=== PATIENT | female | born 1965 | race Caucasian/White ===

== ENCOUNTER 2021-08-18 14:11 | Inpatient (IN) | payer BC, OTHER ==
[~2021-08-18] VITALS: Ht 162.6 cm; Wt 127.3 kg
[2021-08-18 14:38] LABS: BASO # 0.1 K/mm3 (0.0-0.2); BASO % 0.8 % (0.0-2.0); EOS # 0.1 K/mm3 (0.0-0.7); EOS % 1.2 % (0.0-4.0); GRAN % 71.5 % (42.2-75.2); HEMATOCRIT 41.9 % (37.0-47.0); HEMOGLOBIN 14.2 g/dl (12.5-16.0); LYMPH # 1.9 K/mm3 (1.2-3.4); MEAN CELL VOLUME 92 fl (80.0-100.0); MEAN CORPUSCULAR HEMOGLOBIN 31 pg (27-31); MEAN CORPUSCULAR HGB CONC 34 g/dl (33.0-37.0); MEAN PLATELET VOLUME 9.7 fl (7.4-10.4); MONO # 0.7 K/mm3 (0.1-0.6); PLATELET COUNT 361 K/mm3 (130-400); RED BLOOD COUNT 4.58 M/mm3 (4.10-5.30); REDCELL DISTRIBUTION WIDTH-CV 12.5 % (11.5-14.5)
[2021-08-18 14:58] LABS: ALANINE AMINOTRANSFERASE 19 U/L (0-55); ALBUMIN 3.7 gm/dL (3.5-5.0); ALKALINE PHOSPHATASE 99 U/L (40-150); ANION GAP 13 mmol/L (7-16); AST,SGOT 18 U/L (5-34); BILIRUBIN,TOTAL 0.3 mg/dL (0.2-1.2); BLOOD UREA NITROGEN 12 mg/dL (10-20); CALCIUM 9.5 mg/dL (8.4-10.2); CARBON DIOXIDE 21 mmol/L (22-29); CHLORIDE 110 mmol/L (98-107); CREATININE, serum 0.72 mg/dL (0.57-1.11); GLUCOSE 98 mg/dL (70-99); POTASSIUM 3.9 mmol/L (3.5-4.5); SODIUM 144 mmol/L (136-145); TOTAL PROTEIN 7.8 gm/dL (6.2-8.1)
[2021-08-18 15:07] LABS: TROPONIN-I < 0.010 ng/mL (0.00-0.033)
[2021-08-18] MEDS ORDERED: PRILOSEC10 MG PO (16:40)
[2021-08-18 16:53] LABS: PROTHROMBIN TIME 11.2 SECONDS (9.7-12.8)
[2021-08-18 16:56] LABS: PARTIAL THROMBOPLASTIN TIME 36.2 SECONDS (26.0-37.0)
[2021-08-18 17:12] LABS: CHOLESTEROL RISK RATIO 3.4
[2021-08-18 17:15] LABS: HEMOGLOBIN A1C 5.4 %
[2021-08-18 17:32] LABS: THYROID STIMULATING HORMONE 2.35 uIU/mL (0.350-4.940)
[2021-08-18 18:05] VITALS: BP 131/91; PULSE 90; TEMP 98
[2021-08-18 18:16] LABS: PH 7 (5-8); SQUAMOUS EPITHELIAL 0-2 /hpf (0-10); URINE APPEARANCE Clear (CLEAR/HAZY); URINE BACTERIA None Seen /hpf (NONE SEEN); URINE BILIRUBIN Negative (NEGATIVE); URINE BLOOD Negative (NEGATIVE); URINE COLOR Straw (YELLOW); URINE GLUCOSE Negative (NEGATIVE); URINE KETONE Negative (NEGATIVE); URINE LEUKOCYTE ESTERASE Negative (NEGATIVE); URINE NITRATE Negative (NEGATIVE); URINE PROTEIN(semi-quant) Negative (NEGATIVE); URINE RBC 0-2 /hpf (0-2); URINE UROBILINOGEN Negative (NEGATIVE)
[2021-08-18 18:23] LABS: COLLECTION METHOD CLEAN CATCH
--- NOTE | 2021-08-18 19:06 | NUR ---
Patient admitted to room 318 from ED. Report recieved from MIKAL Mckinney. Unable to complete med, pharmacy, and allergie review due to provider being in chart. Onocoming nurse aware. VSS. Patient A&O. Patient stable on feet, but patient does report decreased sensation in right side. Patient c/o of right sided chest pain that radiates to shoulder. JENI Sanchez notified, orders placed and appropriate people contacted to completed. orderes. PRN tylenol given. Patient is currently resting in bed. at the bedside. Patient denies any further pain, discomfort, SOA, or further needs at this time. Call light in reach.
[2021-08-18 19:58] VITALS: BP 106/72; PULSE 96; TEMP 97.9
[2021-08-18 23:33] VITALS: BP 107/62; PULSE 84; TEMP 97.8
[2021-08-19 03:46] VITALS: BP 110/65; PULSE 86; TEMP 97.5
--- NOTE | 2021-08-19 06:15 | NUR ---
ASSESSMENT COMPLETE FOR THIS SHIFT. PT RESTING IN BED NAPPING. PT COMPLAINED OF RIGHT LEG PAIN. HOSPITALIST CALLED. TORADOL ORDERED AND GIVEN. PT FELT PAIN MEDICATION WAS EFFECTIVE. PT DENIED CHEST PAIN, PALPITATIONS, N,V,D, SOB OR DIZZINESS. NEURO'S WNR. PT EXPRESSED NO OTHER NEEDS AT THIS TIME. CALL LIGHT WITHIN REACH.
[2021-08-19 06:34] LABS: HEMATOCRIT 41.1 % (37.0-47.0); HEMOGLOBIN 13.6 g/dl (12.5-16.0); MEAN CELL VOLUME 94 fl (80.0-100.0); MEAN CORPUSCULAR HEMOGLOBIN 31 pg (27-31); MEAN CORPUSCULAR HGB CONC 33 g/dl (33.0-37.0); MEAN PLATELET VOLUME 9.8 fl (7.4-10.4); PLATELET COUNT 331 K/mm3 (130-400); RED BLOOD COUNT 4.38 M/mm3 (4.10-5.30); REDCELL DISTRIBUTION WIDTH-CV 12.4 % (11.5-14.5)
[2021-08-19 06:52] LABS: ALBUMIN 3.4 gm/dL (3.5-5.0); BILIRUBIN,TOTAL 0.6 mg/dL (0.2-1.2); CALCIUM 9.2 mg/dL (8.4-10.2); CREATININE, serum 0.73 mg/dL (0.57-1.11); MAGNESIUM 2.2 mg/dL (1.6-2.6); POTASSIUM 4.3 mmol/L (3.5-4.5); TOTAL PROTEIN 7.2 gm/dL (6.2-8.1)
[2021-08-19 07:16] VITALS: BP 116/73; PULSE 79; TEMP 97.9
[2021-08-19] MEDS ORDERED: METAMUCIL3.4 GM/DOS PO (07:35)
--- NOTE | 2021-08-19 08:20 | NUR ---
Scheduled medications given. Shift assessment preformed. VSS. Patient A&O. Neuro check WNL. Patient does report decreased sensation in right leg and right arm. Normal sensation noted in feet and hands. PRN tylenol given for aching pain rated a 6/10 in right leg. Patient denies any further pain, discomfort, SOA, or further needs at this time. Call light in reach.
--- NOTE | 2021-08-19 10:03 | NUR ---
Initial visit; Patient thanked [employer] Grower for looking in on her and offering God's blessings and to keep her in her prayers.
--- NOTE | 2021-08-19 10:48 | NUR ---
Mill Control Operator met with patient to discuss discharge planning. Patient lives in [place] with her , Joe (ph#[phone]) and sees Dr. Helm for primary care. Patient obtains medications from [facility] in [place] with no difficulties and does not use any DME. Patient is independent with ADLS and plans to return home at time of discharge. PT recommends return home. Patient does not have Advance Directives and is not interested in completing DPOA-[facility] at this time. Discharge Plan: Home
[2021-08-19 11:49] VITALS: BP 131/68; PULSE 73; TEMP 97.8
[2021-08-19] MEDS ORDERED: ASPIRIN 81M81 MG/TA2 PO (11:50)
[2021-08-19] MEDS ORDERED: LIPITOR20 MG PO (11:50)
--- NOTE | 2021-08-19 14:07 | NUR ---
Patient deemed fit for discharge. IV DC'd, catheter intact, no signs of phlebitis. VSS. Patient A&O. Discharge education/instruction given.Patient denies any pain, discomfort, SOA, or furthe needs at this time. Patient ambulated from building escorted by [facility] Staff. transporting home.
== END 2021-08-19 14:12 | disposition home or self-care (01) | DRG 93 ==
LOC: COL.ER 14:11 → MEDICAL 16:56
PROVIDERS: Emergency Medicine; ADMIT Family Medicine
DX: R20.0 Anesthesia of skin (principal); G43.909 Migraine, unspecified, not intractable, without status migrainosus; K21.9 Gastro-esophageal reflux disease without esophagitis; I65.21 Occlusion and stenosis of right carotid artery; K58.9 Irritable bowel syndrome, unspecified; R07.9 Chest pain, unspecified; N63.0 Unspecified lump in unspecified breast; Z88.5 Allergy status to narcotic agent
CPT/HCPCS: 99239; A9575; J1650; J1885; Q9967

== ENCOUNTER 2021-10-27 09:14 | Outpatient (CLI) | payer BC, OTHER ==
[~2021-10-27 09:14] MED LIST: ASPIRIN 81M81 MG/TA2 PO; LIPITOR20 MG PO; METAMUCIL3.4 GM/DOS PO; PRILOSEC10 MG PO
[2021-10-27] MEDS ORDERED: PRINIVIL5 MG PO (09:36)
[2021-10-27] MEDS ORDERED: FOLIC ACID0.8 MG PO (09:37)
[2021-10-27] MEDS ORDERED: vitamin D PO (09:39)
[2021-10-27 09:45] VITALS: BP 105/77; PULSE 102; TEMP 97.7
[2021-10-27 11:57] VITALS: BP 124/80; PULSE 100
[2021-10-27 12:00] VITALS: BP 125/89; PULSE 98
[2021-10-27 12:15] VITALS: BP 112/70; PULSE 87
[2021-10-27 12:30] VITALS: BP 113/68; PULSE 81
[2021-10-27 12:45] VITALS: BP 98/60; PULSE 89
[2021-10-27 12:50] LABS: GLUCOSE,CSF 64 mg/dL (40-70); TOTAL PROTEIN,CSF 48 mg/dL (15-45)
[2021-10-27 12:51] LABS: CSF APPEARANCE CLEAR; CSF COLOR COLORLESS; CSF RBC 0 /mm3 (0-0)
[2021-10-27 13:00] LABS: CSF MONONUCLEAR 100 % (70-100); CSF POLYMORPHONUCLEAR 0 % (0-6)
--- NOTE | 2021-10-27 13:12 | NUR ---
Discharge instructions given to pt.pt verbalizes understanding.Pt escorted out by this nurse.
[2021-10-31 13:25] LABS: ALBUMIN CSF 26.8 mg/dL (<=27.0); ALBUMUN SERUM 4100 mg/dL (())
[2021-10-31 13:51] LABS: IGG,SERUM 1250 mg/dL (())
[2021-10-31 15:00] LABS: CSF OLIG BD INTERPRETATION 0 bands (<2); SE OLIGOCLONAL BANDING 2 bands (())
[2021-10-31 15:55] LABS: CSF IGG/ALBUMIN 0.14 (<=0.21); CSF,IGG 3.7 mg/dL (<=8.1); CSF-IGG INDEX 0.47 (<=0.85)
== END 2021-10-27 13:36 ==
LOC: COL.RAD 09:14
PROVIDERS: Psychiatry & Neurology Neurology
DX: G93.9 Disorder of brain, unspecified (principal)